=== PATIENT | male | born 1945 | race Caucasian/White ===

== ENCOUNTER 2023-11-25 07:30 | Outpatient (AMB) | payer OTHER, SELFPAY ==
--- NOTE | 2023-11-25 07:39 | A.OFFPC_ITS ---
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 Intake Note: [facility] Allergies Seasonal Allergies Adverse Reaction (Verified 11/25/23 07:46) Sneezing statin Adverse Reaction (Uncoded 11/25/23 07:46) joint pain Medication List - Last Reconciled 11/25/23 by Rosio Shore MD amoxicillin 2,000 mg (4 x 500 mg) PO ONCE apixaban (Eliquis) 2.5 mg PO BID dutasteride 0.5 mg PO DAILY losartan 50 mg PO DAILY Tobacco use date assessed: 11/25/23 Fall risk assessment: No Falls in past year Last assessed Fall Risk: 11/25/23 Dental Screening Dental Screen Date: 11/25/23 Did you have a dental visit in the last 12 months?: Yes Did you have a dental problem in the last 6 months where you did not have access to dental care?: No Was dental information given to patient?: Patient has dentist HPI 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 ON LICENSE OF [facility] Family History Father Stomach cancer Mother No problems noted. Social History (Updated 11/25/23 @ 08:16 by Rosio Shore MD) Household Members Other:: , 2 children Housing: House Patient Tobacco Use Status: Never used Tobacco e-Cigarette/Vaping Use: Never Used service: No Current occupational status: retired Cognitive needs: No Hearing needs: No Vision needs: Yes Questionnaire PHQ-9 Over the last 2 weeks, how often have you been bothered by any of the following problems? 1. Little interest or pleasure in doing things: not at all 2. Feeling down, depressed, or hopeless: not at all 3. Trouble falling or staying asleep, or sleeping too much: not at all 4. Feeling tired or having little energy: not at all 5. Poor appetite or overeating: not at all 6. Feeling bad about yourself - or that you are a failure or have let yourself or your family down: not at all 7. Trouble concentrating on things, such as reading the newspaper or watching television: not at all 8. Moving or speaking so slowly that other people could have noticed. Or the opposite - being so fidgety or restless that you have been moving around a lot more than usual: not at all 9. Thoughts that you would be better off or of hurting yourself in some way: not at all Total score: 0 Depression Screening Interpretation: Negative Depression Screening Done: Yes 28288 - PHQ-9 Billing: Yes Source: Developed by Drs. Bo Gee, Claire Merritt, Yamil Terry and colleagues, with an educational tim from [employer]. Thrive Questionnaire Date Thrive assessed: 11/25/23 I am a: Patient What is your living situation today?: I have a steady place to live Within the past 12 months, did the food you bought not last and you didn't have the money to get more?: Never true Within the past 12 months, did you worry whether your food would run out before you got money to buy more?: Never true Do you have trouble paying for medicines?: No Do you have trouble getting transportation to medical appointments?: No Do you have trouble paying your heating and electricity bill?: No Do you have trouble taking care of your child, family member or friend?: No Do you have trouble with day-to-day activities such as bathing, preparing meals, shopping, managing finances, etc.?: No Are you currently unemployed and looking for a job?: No Are you interested in more education?: No THRIVE Score: 0 AUDIT C Alcohol Use Questionnaire (AUDIT-C) 1. How often do you have a drink containing alcohol?: Monthly or less 2. How many drinks containing alcohol do you have on a typical day when you are drinking?: 1 or 2 3. How often do you have six or more drinks on one occasion?: Never Total Score: 1 JAMIL-7 AMB Questionnaire JAMIL-7 Date JAMIL - 7 assessed: 11/25/23 Feeling nervous, anxious, or on edge: 0 = Not at all Not being able to stop or control worryin = Not at all Worrying too much about different things: 0 = Not at all Trouble relaxin = Not at all Being so restless that it is hard to sit still: 0 = Not at all Becoming easily annoyed or irritable: 0 = Not at all Feeling afraid as if something awful might happen: 0 = Not at all Total JAMIL-7 score (0-4 normal; 5-9 mild; 10-14 moderate; 15-21 severe): 0 Source: Developed by Drs. Bo Gee, Claire Merritt, Yamil Terry and colleagues, with an educational tim from [employer]. Review of Systems Const All systems reviewed & are unremarkable except as noted in HPI and below Reports no additional complaints Eyes Reports no additional complaints ENT Reports no additional complaints Card Reports no additional complaints Resp Reports no additional complaints GI Reports no additional complaints Reports no additional complaints Physical exam (Primary Care) Vital Signs: Last Vital Signs Pulse 69 11/25/23 07:44 BP 138/70 11/25/23 07:44 Pulse Ox 96 11/25/23 07:44 Oxygen Delivery Method Room Air 11/25/23 07:44 BMI result Body Mass Index 27.0 Tobacco/Smoking Status: Tobacco use Status Tobacco use date assessed 11/25/23 11/25/23 07:50 Patient Tobacco Use Status Never used Tobacco 11/25/23 08:16 e-Cigarette/Vaping Use Never Used 11/25/23 08:16 PHQ-9: PHQ-9 Score PHQ-9: Total score 0 11/25/23 08:10 Depression Screening Interpretation: Negative Thrive Assessment: Date of Thrive Assessment Date Thrive assessed 11/25/23 11/25/23 07:53 Const General: no acute distress HENMT Head: Yes normal to inspection General nose exam: Normal external nose present Mouth: Normal oral and palatal mucosa present Eyes General: appearance normal, both eyes and all related structures Neck Neck: Yes no lymphadenopathy and Yes supple Resp Effort & Inspection: normal respiratory effort Auscultation: clear to auscultation bilaterally Cardio Rhythm: regular rhythm Heart sounds: S1 normal heart sound present and S2 normal heart sound present GI Inspection: Yes normal to inspection Palpation (GI): Soft to palpation Percussion: Yes normal to percussion Auscultation: normal bowel sounds Skin Other: Multiple irregular borders flat nevi on the back Assessment and Plan Assessment & Plan (1) BPH (benign prostatic hyperplasia): Comment: f/u with [facility] Code(s): N40.0 - Benign prostatic hyperplasia without lower urinary tract symptoms Plan: CONTINUE DUTASTERIDE (2) Hx pulmonary embolism: Comment: 2009 , on Eliquis Code(s): Z86.711 - Personal history of pulmonary embolism Plan: Continue Eliquis (3) HTN (hypertension): Code(s): I10 - Essential (primary) hypertension Plan: Continue losartan (4) H/O hernia repair: Code(s): Z98.890 - Other specified postprocedural states; Z87.19 - Personal history of other diseases of the digestive system (5) Annual physical exam: Code(s): Z00.00 - Encounter for general adult medical examination without abnormal findings Plan: Well-balanced diet regular physical activity discussed with the patient, return for physical in 1 year (6) Dysplastic nevi: Code(s): D23.9 - Other benign neoplasm of skin, unspecified Plan: Referred to dermatology Orders: Orders Complete Blood Count Auto Diff Today I10 - Essential (primary) hypertension, N40.0 - Benign prostatic hyperplasia without lower urinary tract symptoms Lipid Panel Today I10 - Essential (primary) hypertension, N40.0 - Benign prostatic hyperplasia without lower urinary tract symptoms Complete Blood Count Auto Diff 1 Year I10 - Essential (primary) hypertension, Z86.711 - Personal history of pulmonary embolism [facility]. Panel Fast Today I10 - Essential (primary) hypertension, N40.0 - Benign prostatic hyperplasia without lower urinary tract symptoms [facility]. Panel Fast 1 Year I10 - Essential (primary) hypertension, Z86.711 - Personal history of pulmonary embolism Referrals Dermatology Referral D23.9 - Other benign neoplasm of skin, unspecified Medications: New losartan 50 mg PO DAILY 90 tabs 3RF amoxicillin before dental procedure 2,000 mg (4 x 500 mg) PO ONCE 8 tabs 1RF apixaban (Eliquis) 2.5 mg PO BID 180 tabs 3RF Coding Level of Care Code New Pt Prev Care >65yr (32655) Diagnoses BPH (benign prostatic hyperplasia) N40.0 Hx pulmonary embolism Z86.711 HTN (hypertension) I10 H/O hernia repair Z98.890; Z87.19 Annual physical exam Z00.00 Dysplastic nevi D23.9
[2023-11-25 07:44] VITALS: BP 138/70; PULSE 69; O2SAT 96; BMI 27.0
== END 2023-11-25 08:37 | disposition home or self-care (01) ==
PROVIDERS: PCP Internal Medicine; Visit Provider Internal Medicine
DX: N40.0 Benign prostatic hyperplasia without lower urinary tract symptoms (principal); Z86.711 Personal history of pulmonary embolism; I10 Essential (primary) hypertension; Z98.890 Other specified postprocedural states; Z87.19 Personal history of other diseases of the digestive system; Z00.00 Encounter for general adult medical examination without abnormal findings; D23.9 Other benign neoplasm of skin, unspecified
CPT/HCPCS: 99387

== ENCOUNTER 2023-11-25 08:44 | Outpatient (REF) | payer OTHER, SELFPAY ==
[2023-11-25 10:24] LABS: MANUAL DIFF FLAG NO
[2023-11-25 10:42] LABS: Basophils Percent Auto 0.5 % (0-2); Eosinophils Absolute Auto 0.1 X10*3/uL (0.0-0.4); Eosinophils Percent Auto 1.5 % (0-4); Hemoglobin 16.8 g/dl (14.0-18.0); Imm Gran Abs Auto 0.03 X10*3/uL (0.00-0.03); Imm Gran Pct Auto 0.4 % (0.0-0.4); Lymphocytes Absolute Auto 3.1 X10*3/uL (1.2-4.9); Lymphocytes Percent Auto 40.8 % (20-40); Mean Corpuscular HGB Conc 33.6 g/dl (31.0-36.0); Mean Corpuscular Hemoglobin 30.6 pg (27.0-33.0); Mean Corpuscular Volume 91.1 fL (80.0-98.0); Mean Platelet Volume 8.8 fL (9.4-12.4); Monocytes Absolute Auto 0.7 X10*3/uL (0.1-1.2); Monocytes Percent Auto 9.4 % (2-11); Neutrophils Absolute Auto 3.6 x10*3/uL (2.0-8.3); Neutrophils Percent Auto 47.4 % (45-73); Platelet Count 409 X10*3/uL (160-400); Red Blood Count 5.49 X10*6/uL (4.60-5.80); Red Cell Distribution Width 13.1 % (11.0-16.0); White Blood Count 7.6 X10*3/uL (4.8-10.8)
[2023-11-25 10:59] LABS: Alanine Aminotransferase 17 U/L (0-40); Albumin Level 4.3 g/dL (3.5-5.0); Alkaline Phosphatase 84 U/L (39-117); Anion Gap 13 (12-20); Aspartate Amino Transferase 17 U/L (5-37); Bilirubin Total 0.7 mg/dL (0.0-1.0); Blood Urea Nitrogen 21 mg/dL (9-16); Calcium 9.3 mg/dL (8.4-10.2); Carbon Dioxide 24 mmol/L (22-29); Chloride 108 mmol/L (96-108); Cholesterol 261 mg/dL (<200); Estimated Glomerular Filt Rate > 60; Glucose Fasting 109 mg/dL (60-99); HDL Cholesterol 38 mg/dL (>40); LDL Cholesterol Calculated 192 mg/dL (<100); Potassium 4.3 mmol/L (3.3-5.1); Sodium 141 mmol/L (135-145); Total Protein 7.5 g/dL (6.5-8.0); Triglycerides 158 mg/dL (<150)
== END 2023-11-25 08:45 | disposition home or self-care (01) ==
LOC: HO.HMGCLDS 08:44
PROVIDERS: PCP Internal Medicine; Visit Provider Internal Medicine
DX: I10 Essential (primary) hypertension (principal); N40.0 Benign prostatic hyperplasia without lower urinary tract symptoms
CPT/HCPCS: 36415; 80053; 80061; 85025

== ENCOUNTER 2024-08-09 13:00 | Outpatient (AMB) | payer OTHER, SELFPAY ==
--- NOTE | 2024-08-09 13:22 | AM.OFFWIN_ITS ---
Intake Vital Signs 08/09/24 13:27 Weight 168 lb BP 122/80 Blood Pressure Location Lt brachial Position Sitting Pulse 60 Pulse Source Pulse Oximeter Pulse Oximetry (%) 98 Oxygen Delivery Method Room Air Intake Visit Reasons: EP needs Aditi removed from the back of the head Intake Note: Patient here to have aditi removed from back of head. placed at [facility] and has 5 aditi. Patient Tobacco Use Status: Never used Tobacco Allergies Seasonal Allergies Adverse Reaction (Verified 08/09/24 13:28) Sneezing statin Adverse Reaction (Uncoded 08/09/24 13:28) joint pain Do you need a note to return to daycare/school/sports/work: No HPI HPI Comments History of Present Illness Details History of Present Illness - The patient is an 78-year-old male pre senting with staple removal from the scalp. - Previously, one week ago, the patient experienced symptoms of influenza, including nausea, vomiting, dizziness, and diarrhea. - The patient fainted as a result, susta ining a laceration to the scalp which required five aditi for closure. - Post-treatment, there has been no repo rted pain or complications at the staple site, and he has maintained cleanliness around the area. - The aditi were placed without furthe r issues, and no discharge or infection was noted. Physical Exam General: Cooperative, healthy appearing, comfortable, no acute distress and well developed Orientation: Patient oriented x3 Limitations: No limitations Head: [place] removed from scalp, healed well with scab present Ears: Hearing grossly normal bilaterally Nose: Normal external nose present Face and sinus: Normal facial exam Eyes: Appearance normal, both eyes and all related structures Neck: Normal visual inspection and Yes full ROM Respiratory: Normal respiratory effort and able to speak in complete sentences. Skin: No rashes or lesions noted Neuro: Patient oriented x3 Extremities: Normal to inspection [facility] Family History (Updated 11/25/23 @ 08:24 by Rosio Shore MD) Father Stomach cancer Mother No problems noted. Social History (Updated 11/25/23 @ 08:16 by Rosio Shore MD) Household Members Other:: , 2 children Housing: House Patient Tobacco Use Status: Never used Tobacco e-Cigarette/Vaping Use: Never Used service: No Current occupational status: retired Cognitive needs: No Hearing needs: No Vision needs: Yes Review of Systems Const All systems reviewed & are unremarkable except as noted in HPI and below Physical Exam Vital Signs: Last Vital Signs Pulse 60 08/09/24 13:27 BP 122/80 08/09/24 13:27 Pulse Ox 98 08/09/24 13:27 Oxygen Delivery Method Room Air 08/09/24 13:27 Assessment & Plan Assessment & Plan (1) Encounter for staple removal: Code(s): Z48.02 - Encounter for removal of sutures Plan: Plan The course of action for today's visit was the removal of five aditi from the patient's scalp, which was uneventful and completed successfully. The area was found to be healing well, with no signs of infection or drainage. The patient was instructed on gentle washing of hair to ensure continued healing without disrupting the area. No further wound care was deemed necessary at this time. Patient was informed and verbally consented to the use of an ambient scribe for clinic note documentation during this visit. Coding Level of Care Code Est Pt Level 3 (23530) Diagnoses Encounter for staple removal Z48.02
[2024-08-09 13:27] VITALS: BP 122/80; PULSE 60; O2SAT 98
--- OUTSIDE RECORDS SUMMARY | 2024-08-09 13:53 | XMS_ITS | Clinical Summary ---
Author Organization [address] [facility] Address [address] [place] [address] Phone Care Team Providers Care Senior Payroll Specialist Name Role Phone Rosio Shore MD Primary Care Provider Encounters Date Type Department Care Team Description 07/24/2024 Lab Requisition [facility] - Main Lab [address] [facility] [place] [address] Rayray Radford MD Benign prostatic hyperplasia without lower urinary tract symptoms from Last 3 Months Social History Tobacco Use Types Packs/Day Years Used Date Smoking Tobacco: Never Assessed Sex and Gender Information Value Date Recorded Sex Assigned at Not on file Legal Sex Male 4:05 PM EST Gender Identity Not on file Sexual Orientation Not on file Plan of Treatment Health Maintenance Due Date Last Done Comments DTaP,Tdap,and Td Vaccines (1 - Tdap) 08/26/1962 Pneumococcal Vaccine: 50+ Ye ars (1 of 1 - PCV) 08/26/1993 Zoster Vaccines (1 of 2) 08/26/1993 RSV Immunization Patients 60 + Years Old (1 - 1-dose 75+ series) 08/26/2018 Cholesterol Screening (Lipid Panel) 05/19/2022 Depression Screening 05/19/2022 Falls Risk Assessment 05/19/2022 Medicare Annual Wellness Visit 05/19/2022 Social Influencers of Health Screening 05/19/2022 COVID-19 Vaccine ( - 2023-2 5 season) 2024 Influenza Vaccine (#1) 2024 HIB Vaccines Aged Out No longer eligi ble based on patient's age to complete this topic HPV Vaccines Aged Out No longer eligi ble based on patient's age to complete this topic Hepatitis A Vaccines Aged Out No long er eligible based on patient's age to complete this topic Hepatitis B Vaccines Aged Out No long er eligible based on patient's age to complete this topic IPV Vaccines Aged Out No longer eligi ble based on patient's age to complete this topic MMR Vaccines Aged Out No longer eligi ble based on patient's age to complete this topic Meningococcal ACWY Vaccine Aged Out N o longer eligible based on patient's age to complete this topic Meningococcal B Vacine Aged Out No lo nger eligible based on patient's age to complete this topic RSV Immunization Patients Un padmini 20 months Aged Out No longer eligible b ased on patient's age to complete this topic Varicella Vaccines Aged Out No longer eligible based on patient's age to complete this topic Procedures Procedure Name Priority Date/Time Associated Diagnosis Comments PROSTATE SPECIFIC ANTIGEN DIAGNOSTIC Routine 07/24/2024 9:46 AM EST Benign prostatic hyperplasia without lower urinary tract symptoms from Last 3 Months Results * Prostate specific antigen diagnostic (07/24/2024 9:46 AM EST) PSA 0.82 0.00 - 4.00 ng/mL LAB CHEMISTRY METHOD 07/24/2024 1:31 PM EST [facility] Blood Venous blood specimen / Unknown 07/24/2024 9:46 AM EST 07/24/2024 12:38 PM EST Narrative [facility] - 07/24/2024 1:31 PM EST The Siemens Advia Centaur Chemiluminescent Immunoassay is used. Results obtained with different assay methods or kits cannot be used interchangeably. Results cannot be interpreted as absolute evidence of the presence or absence of malignant disease. us Rayray Radford MD LAB BLOOD ORDERABLES Final Resul t [facility] [address] [place] [address], from Last 3 Months Insurance [employer] [id number] [employer]AGE Care Teams Senior Payroll Specialist Relationship Specialty Start Date End Date Rosio Shore MD [address] [place] [phone] PCP - General Internal Medicine 07/24/24
--- OUTSIDE RECORDS SUMMARY | 2024-08-09 13:53 | XMS_ITS | Encounter Summary ---
Author Organization [facility] Address [address] [place] [address] Care Team Providers Care Tube Wrapper Name Role Phone Rosio Shore MD Primary Care Provider [phone] Encounter Details Date Type Department Care Team (Late st Contact Info) Description 07/24/2024 Lab Requisition [facility] - Main Lab [address] [facility] [place] [address] Rayray Radford MD [address] [facility] [address] [place] [address] Benign prostatic hyperplasia without lower urinary tract symptoms Social History Tobacco Use Types Packs/Day Years Used Date Smoking Tobacco: Never Assessed Sex and Gender Information Value Date Recorded Sex Assigned at Not on file Legal Sex Male 4:05 PM EST Gender Identity Not on file Sexual Orientation Not on file documented as of this encounter Plan of Treatment Not on file documented as of this encounter Procedures Procedure Name Priority Date/Time Associated Diagnosis Comments PROSTATE SPECIFIC ANTIGEN DIAGNOSTIC Routine 07/24/2024 9:46 AM EST Benign prostatic hyperplasia without lower urinary tract symptoms documented in this encounter Results * Prostate specific antigen diagnostic (07/24/2024 9:46 AM EST) PSA 0.82 0.00 - 4.00 ng/mL LAB CHEMISTRY METHOD 07/24/2024 1:31 PM EST [facility] Blood Venous blood specimen / Unknown 07/24/2024 9:46 AM EST 07/24/2024 12:38 PM EST Narrative [facility] - 07/24/2024 1:31 PM EST The Siemens Advia Centaur Chemiluminescent Immunoassay is used. Results obtained with different assay methods or kits cannot be used interchangeably. Results cannot be interpreted as absolute evidence of the presence or absence of malignant disease. Rayray Radford MD LAB BLOOD ORDERABLES Final Resul t [facility] [address] [place] [address], documented in this encounter Visit Diagnoses Diagnosis Benign prostatic hyperplasia without lower urinary tract symptoms documented in this encounter Care Teams Tube Wrapper Relationship Specialty Start Date End Date Rosio Shore MD [address] [place] [phone] PCP - General Internal Medicine 07/24/24 documented as of this encounter
--- OUTSIDE RECORDS SUMMARY | 2024-08-09 13:53 | XMS_ITS | Continuity of Care Document ---
Author Organization [facility] ter Address [address] [place] [id number]- Care Team Providers Care Binding Folder Machine Name Role Phone Yuliya Conroy Primary Care Physician Unava ilable Encounter [facility] ACCT R [id number] Date(s): 08/02/24 - 08/02/[address] [address]- Encounter Diagnosis Vomiting(Final) - 08/02/24 Diarrhea(Final) - 08/02/24 Syncope(Final) - 08/02/24 Laceration of head(Final) - 08/02/24 Discharge Disposition: A-D/C Home Attending Physician: Andres Dunlap MD Admitting Physician: Andres Dunlap MD Referring Physician: Not on Staff, Referring MD Encounter Type: Disch ES Allergies, Adverse Reactions, Alerts Substance Criticality Severity Reaction Reaction Severity Status simvastatin 1 Active atorvastatin 2 Activ e 1myalgia 2myalgia Medications cholecalciferol 2000 intl units oral capsule 1 capsule = 2,000 International_Units, By Mouth, Daily, 0 Refills, Maintenance, 02/16/19 10:33:25 AMEDT, Capsule Start Date: 02/16/19 Status: Ordered Repeat number: 1 Colace sodium 100 mg oral capsule 100 mg, 1, capsule, By Mouth, 2 times a day, PRN, # 20 capsule, Refills 0, Tot. Refills 0, Maintenance, for constipation, 02/27/19 3:19:12 PM EDT, Print Requisition Start Date: 02/27/19 Stop Date: 03/09/19 Status: Ordered Quantity: 20.0 Unit: capsule Repeat number: 1 Coumadin 1 mg oral tablet See Instructions, 1-10 tablets By Mouth Daily as directed, # 150 tablet, 0 Refills, Maintenance, 07/21/19 8:16:00 AM EST, Tablet Start Date: 07/21/19 Status: Ordered Quantity: 150.0 Unit: tablet Repeat number: 1 Dilaudid 2 mg oral tablet 1 tablet = 2 mg, By Mouth, Every 4 hours, PRN as needed for pain, # 30 tablet, 0 Refills, Maintenance, 07/21/19 8:16:00 AM EST, Tablet, Partial fill upon patient request Start Date: 07/21/19 Status: Ordered Quantity: 30.0 Unit: tablet Repeat number: 1 dutasteride 0.5 mg oral capsule 1 capsule = 0.5 mg, By Mouth, Daily, # 30 capsule, 0 Refills, Maintenance, 02/16/19 10:33:09 AM EDT,Capsule Start Date: 02/16/19 Status: Ordered Quantity: 30.0 Unit: capsule Repeat number: 1 losartan 50 mg oral tablet 50 mg, 1, tablet, By Mouth, Daily, Only if BP is 130 pt might go back to this med., # 30 tablet, Refills 0, Maintenance, 02/16/19 10:32:44 AM EDT Start Date: 02/16/19 Status: Ordered Quantity: 30.0 Unit: tablet Repeat number: 1 Lovenox 40 mg/0.4 mL injectable solution = 40 mg, Subcutaneous Injection, Daily, take until INR>1.8, # 7 each, 0 Refills, Maintenance, 07/21/19 8:15:00 AM EST Start Date: 07/21/19 Status: Ordered Quantity: 7.0 Unit: each Repeat number: 1 ondansetron 4 mg oral tablet, disintegrating 1 tablet = 4 mg, By Mouth, Every 8 hours, PRN Nausea & Vomiting, # 10 tablet, 0 Refills, Maintenance, 08/02/24 7:20:00 PM EST, Tablet, [id number], Partial fill upon patient request if the prescription is for a schedule II opioid drug. Start Date: 08/02/24 Status: Ordered Quantity: 10.0 Unit: tablet Repeat number: 1 Problem List Condition Confirmation Course Effective Dates Status H ealth Status Informant History of pulmonary embolism (2017) - evaluated by hematology, negative thrombophilia testing, still recommended life long anticoagulation Confirmed Active Hypertension Confirmed Active Left inguinal hernia Confirmed Active Results Radiology Reports * Exam Date Time Procedure Performing Provider Status 08/02/24 7:[address] Cervical Spine W/O Contrast Jackie Cruz; Auth (Verified) Notes: (CT Cervical Spine W/O Contrast) Reason For Exam: Neck trauma, dangerous injury mechanism;Other: RESULT: CT Cervical Spine W/O Contrast CT Head/Brain W/O Contrast, CT Cervical Spine W/O Contrast INDICATION: Hx of Present Illness: Pt presents after unwitnessed fall off toilet, ?syncopal episode. +head strike, +LOC, +thinner. lac to back of head, bleeding controlled. pt also c o [facility]. pt reports diarrhea x1 day at home.; Reason: Trauma; Clinical Question(s): Hematoma TECHNIQUE: Noncontrast head CT using axial technique was reconstructed in axial and coronal planes.Noncontrast spiral CT through the cervical spine was formatted in 3 planes. Automatic tube modulation was used for the cervical spine and iterative dose reconstruction was used for both the head and cervical spine to optimize scan parameters and image quality. CTDIvol Body: 13.20 mGy, DLP Body: 342 mGy*cm. CTDIvol Head: 39.70 mGy, DLP Head: 672 mGy*cm. COMPARISON: None. FINDINGS: Copper Tapper View Findings, Lines and Tubes: None. BRAIN AND EXTRA-AXIAL SPACES: No parenchymal hemorrhage, midline shift, or mass effect. Waller-white matter differentiation is wellpreserved. No acute infarct. Mild prominence of the ventricles and sulci consistent with parenchymal volume loss. Mild low-density white matter changes. No subarachnoid hemorrhage. No subdural or epidural collection. CALVARIUM, SKULL BASE, AND SOFT TISSUES: No fractures or suspicious bony lesions. The paranasal sinuses and mastoid air cells are clear. Visualized orbits and globes are intact. The extracranial soft tissues are unremarkable. CERVICAL SPINE: No fracture. No acute osseous abnormalities. Normal alignment. No locked or perched facet. Moderate multilevel degenerative disc space narrowingand end plate irregularity. OTHER BONES: No acute abnormality. CERVICAL SOFT TISSUES AND LUNG APICES: Normal soft tissues. Visualized lung apices are clear. IMPRESSION: 1. No evidence of acute intracranial abnormality. 2. No evidence of acute fracture or dislocation of the cervical spine. WSN: [id number] Ordering Physician: Talia Zeng Dictated By: Rickey Naranjo MD Dictated Date/Time: 08/02/24 8:02 am Reviewed By: Rickey Naranjo MD Signed By: Rickey aNranjo MD Signed Date/Time: 08/02/24 8:02 am Transcribed By: RICA Transcribed Date/Time: 08/02/24 8:00 am * Exam Date Time Procedure Performing Provider Status 08/02/24 7:[address] Head/Brain W/O Contrast Jackie Rodriguez; Auth (Verified) Notes: (CT Head/Brain W/O Contrast) Reason For Exam: Trauma RESULT: CT Head/Brain W/O Contrast CT Head/Brain W/O Contrast, CT Cervical Spine W/O Contrast INDICATION: Hx of Present Illness: Pt presents after unwitnessed fall off toilet, ?syncopal episode. +head strike, +LOC, +thinner. lac to back of head, bleeding controlled. pt also c o [facility]. pt reports diarrhea x1 day at home.; Reason: Trauma; Clinical Question(s): Hematoma TECHNIQUE: Noncontrast head CT using axial technique was reconstructed in axial and coronal planes.Noncontrast spiral CT through the cervical spine was formatted in 3 planes. Automatic tube modulation was used for the cervical spine and iterative dose reconstruction was used for both the head and cervical spine to optimize scan parameters and image quality. CTDIvol Body: 13.20 mGy, DLP Body: 342 mGy*cm. CTDIvol Head: 39.70 mGy, DLP Head: 672 mGy*cm. COMPARISON: None. FINDINGS: Copper Tapper View Findings, Lines and Tubes: None. BRAIN AND EXTRA-AXIAL SPACES: No parenchymal hemorrhage, midline shift, or mass effect. Waller-white matter differentiation is wellpreserved. No acute infarct. Mild prominence of the ventricles and sulci consistent with parenchymal volume loss. Mild low-density white matter changes. No subarachnoid hemorrhage. No subdural or epidural collection. CALVARIUM, SKULL BASE, AND SOFT TISSUES: No fractures or suspicious bony lesions. The paranasal sinuses and mastoid air cells are clear. Visualized orbits and globes are intact. The extracranial soft tissues are unremarkable. CERVICAL SPINE: No fracture. No acute osseous abnormalities. Normal alignment. No locked or perched facet. Moderate multilevel degenerative disc space narrowingand end plate irregularity. OTHER BONES: No acute abnormality. CERVICAL SOFT TISSUES AND LUNG APICES: Normal soft tissues. Visualized lung apices are clear. IMPRESSION: 1. No evidence of acute intracranial abnormality. 2. No evidence of acute fracture or dislocation of the cervical spine. WSN: [id number] Ordering Physician: Talia Zeng Dictated By: Rickey Naranjo MD Dictated Date/Time: 08/02/24 8:02 am Reviewed By: Rickey Naranjo MD Signed By: Rickey Naranjo MD Signed Date/Time: 08/02/24 8:02 am Transcribed By: RICA Transcribed Date/Time: 08/02/24 8:00 am Vital Signs Most recent to oldest [Reference Range]: 1 2 3 Oxygen Saturation [94-100 %] 98 % (08/02/24 7:04 PM) 95 % (08/02/24 11:40 AM) 97 % (08/02/24 7:58 AM) Pulse Rate [55-90 bpm] 104 bpm *H* (08/02/24 7:04 PM) 73 bpm (08/02/24 11:40 AM) 69 bpm (08/02/24 7:58 AM) Blood Pressure [90-138/55-84 mm Hg] 130/82mm Hg (08/02/24 7:04 PM) 138/70mm Hg (08/02/24 11:40 AM) 125/58mm Hg (08/02/24 7:58 AM) Respiratory Rate [16-30 br/min] 16 br/min (08/02/24 7:04 PM) 18 br/min (08/02/24 7:58 AM) 18 br/min (08/02/24 7:03 AM) Temperature [96.8-100.4 DegF] 97.7 DegF (08/02/24 7:04 PM) 97.5 DegF (08/02/24 7:58 AM) 97.5 DegF (08/02/24 7:03 AM) Mode of Delivery (Oxygen) Room air (08/02/24 7:04 PM) Room air (08/02/24 7:58 AM) Room air (08/02/24 7:03 AM) Blood pressure sites Arm, right (08/02/24 7:04 PM) Arm, right (08/02/24 7:58 AM) Arm, left (08/02/24 7:03 AM) Temperature Route Oral (08/02/24 7:04 PM) Oral (08/02/24 7:58 AM) Oral (08/02/24 7:03 AM) Social History Social History Type Response Smoking Status Never smoker entered on: 09/20/17 Sex Sex Representation Male (finding) Implantable Device List Procedure Provider Procedure Date Device Type Site Repair Hernia Inguinal with Mesh Cricket Gallo MD 02/27/19 Unknown Groin Left Device Identifier Serial Number Lot or Batch Number Manufacturing Date Expiration Date Distinct Identification Code MRI Safety Implantable Status Assigning Authority Unknown [id number] Unknown 06/16/23 Unknown Unknown Active Unknown EKG study * Event Display: ECG 12-Lead Authored Date: [id number] Please click on pdf link to open report * Event Display: ECG 12-Lead Authored Date: [id number] Ventricular Rate: 58 BPM Atrial Rate: 58 BPM P-R Interval: 162 ms QRS Duration: 132 ms Q-T Interval: 476 ms QTC Calculation(Bazett): 467 ms P Wolf: 13 degrees R Wolf: -53 degrees T Wolf: 10 degrees Sinus bradycardia Right bundle branch block Left anterior fascicular block Bifascicular block Minimal voltage criteria for LVH, may be normal variant ( R in aVL ) Abnormal ECG When compared with ECG of 22-Jul-2019 09:00, Inverted T waves have replaced nonspecific T wave abnormality in Anterior leads Confirmed by KIEL GAMBLE MD ([id number]) on 08/03/2024 8:19:45 AM [place]: KIEL GAMBLE MD Note * Azucena FLAHERTY, Talia: PERFORM Event Display: Patient Education Leaflets Authored Date: [id number] Scalp Laceration, Stitches or [place] ?? [id number] Scalp Laceration, Stitches or Atul A laceration is a cut through the skin. A scalp laceration may require stitches or atul. It may also be closed with a hair positioning method, such as braiding. There are a lot of blood vessels inthe scalp. Because of this, a lot of bleeding is common with scalp cuts. You may need a tetanus shot if you're not up to date on your tetanus vaccine. Home care These guidelines will help you care for your laceration at home: ??? Follow your healthcare provider's specific directions on washing your hair and scalp. During the first 2 days you may carefully rinse your hair in the shower to remove blood and glass or dirt particles, or as advised by your provider. After 2 days you may shower and shampoo your hair normally. Don't scrub the repaired area or let water run on it for a long time. ??? Have someone help you clean your wound every day: o In the shower, wash the area with soap and water. Use a wet cotton swab to loosen and remove any blood or crust that forms. o After cleaning, keep the wound clean and dry. Talk with your healthcare provider about applying antibiotic ointment to the wound. Apply a fresh bandage. ??? Don't put your head underwater until the stitches or atul have been removed. This means no swimming. ??? Your provider may prescribe an antibiotic cream or ointment to prevent infection. Don't stop taking this medicine until you've finished the medicine that was prescribed, or your provider tells you to stop. ??? Your prov ider may prescribe medicines for pain. If no pain medicines were prescribed, you can use [id number] pain medicines. Follow instructions for taking these medicines. Talk with your provider before using these medicines if you have chronic liver or kidney disease. Also talk with your provider ifyou've ever had a stomach ulcer or digestive tract bleeding. ??? To help prevent scarring, put sunscreen on the wound after it has healed. Use a sunscreen with SPF of 30 or higher. Reapply sunscreen often. ?? Follow-up care Follow up with your healthcare provider as advised. Check the wound daily for the signs of infection listed below. Stitches or atul are often removed from the scalp in about 7 to 10 days. ?? Call 911 Call 911 if this occurs: ??? Bleeding can't be controlled by direct pressure ?? When to get medical advice Call your healthcare provider right away if any of the following occur: ??? Signs of infection, including increasing pain in the wound, redness, swelling, or pus coming from the wound ??? Fever of 100.4??F (38??C) or higher, or as advised by your provider ??? Chills ??? Stitches or atul come apart or fall out before 7 days ??? Wound edges reopen ?? Last Reviewed Date: 2021 ?? [id number] [employer]. All rights reserved. This information is not intended as a substitute for professional medical care. Always follow your healthcare professional's instructions. ?? Patient Care team information Care Team Personnel Name: Rocio Cuevas RN Position: S RN Member Role: Primary Care Nurse Name: Yuliya Conroy Position: Reference Physician Member Role: PCP Name: Mikala Canas RN Position: S RN Member Role: Primary Care Nurse Name: Braydon Macias RN Position: S RN Member Role: Primary Care Nurse Name: Riya Linares RN Position: S RN Member Role: Primary Care Nurse Care Team Related Persons Name: JANESSA PAREDES Name: DONOVAN PAREDES Insurance Providers Guarantor name: JASKARAN PAREDES Health Plan Information #: 1 Payer: [facility] [employer] H[facility] Member Number: [id number] Policy Number: NA Group Number: [id number] Health Plan Information #: 2 Payer: [facility] [employer] H[facility] Member Number: [id number] Policy Number: NA Group Number: [id number]
== END 2024-08-09 13:44 | disposition home or self-care (01) ==
PROVIDERS: PCP Internal Medicine; Visit Provider Physician Assistant
DX: Z48.02 Encounter for removal of sutures (principal)

== ENCOUNTER 2024-08-15 11:50 | Outpatient (AMB) | payer OTHER, SELFPAY ==
--- NOTE | 2024-08-15 12:40 | A.OFFPC_ITS ---
Vital Signs 08/15/24 12:41 Height 5 ft 6 in Weight 169 lb BMI 27.3 BP 130/80 Blood Pressure Location Lt brachial Position Sitting Respiration 18 Pulse 81 Pulse Source Pulse Oximeter Temp 97.7 F Temp Source Oral Pulse Oximetry (%) 97 Oxygen Delivery Method Room Air Intake Visit Reasons: Pre op cataract Intake Note: Pt is here today for a pre op visit. Pt is having cataract surgery on Allergies Seasonal Allergies Adverse Reaction (Verified 08/15/24 13:00) Sneezing statin Adverse Reaction (Uncoded 08/15/24 13:00) joint pain Medication List - Last Reconciled 08/15/24 by Rosio Shore MD apixaban (Eliquis) 2.5 mg PO BID dutasteride 0.5 mg PO DAILY losartan 50 mg PO DAILY Tobacco use date assessed: 08/15/24 Fall risk assessment: 1 Fall in past year Last assessed Fall Risk: 08/15/24 Dental Screening Dental Screen Date: 08/15/24 Did you have a dental visit in the last 12 months?: Yes Did you have a dental problem in the last 6 months where you did not have access to dental care?: No Was dental information given to patient?: Patient has dentist HPI Pre op cataract HPI Details Pt presents for preop cataract surgery for R eye. Hypertension is controlled on losartan. [facility] Family History (Updated 11/25/23 @ 08:24 by Rosio Shore MD) Father Stomach cancer Mother No problems noted. Social History (Updated 11/25/23 @ 08:16 by Rosio Shore MD) Household Members Other:: , 2 children Housing: House Patient Tobacco Use Status: Never used Tobacco e-Cigarette/Vaping Use: Never Used service: No Current occupational status: retired Cognitive needs: No Hearing needs: No Vision needs: Yes Questionnaire PHQ-9 Over the last 2 weeks, how often have you been bothered by any of the following problems? 1. Little interest or pleasure in doing things: not at all 2. Feeling down, depressed, or hopeless: not at all 3. Trouble falling or staying asleep, or sleeping too much: not at all 4. Feeling tired or having little energy: not at all 5. Poor appetite or overeating: not at all 6. Feeling bad about yourself - or that you are a failure or have let yourself or your family down: not at all 7. Trouble concentrating on things, such as reading the newspaper or watching television: not at all 8. Moving or speaking so slowly that other people could have noticed. Or the opposite - being so fidgety or restless that you have been moving around a lot more than usual: not at all 9. Thoughts that you would be better off or of hurting yourself in some way: not at all Total score: 0 Depression Screening Interpretation: Negative Depression Screening Done: Yes 10376 - PHQ-9 Billing: Yes Source: Developed by Drs. Bo Gee, Claire Merritt, Yamil Terry and colleagues, with an educational tim from [employer]. Thrive Questionnaire Date Thrive assessed: 08/15/24 I am a: Patient What is your living situation today?: I have a steady place to live Within the past 12 months, did the food you bought not last and you didn't have the money to get more?: Never true Within the past 12 months, did you worry whether your food would run out before you got money to buy more?: Never true Do you have trouble paying for medicines?: No Do you have trouble getting transportation to medical appointments?: No Do you have trouble paying your heating and electricity bill?: No Do you have trouble taking care of your child, family member or friend?: No Do you have trouble with day-to-day activities such as bathing, preparing meals, shopping, managing finances, etc.?: No Are you currently unemployed and looking for a job?: No Are you interested in more education?: No Please select the resources that you would like help with: None Currently or been in a relationship where the following occur: No concerns reported THRIVE Score: 0 AUDIT C Alcohol Use Questionnaire (AUDIT-C) 1. How often do you have a drink containing alcohol?: Never 3. How often do you have six or more drinks on one occasion?: Never Total Score: 0 JAMIL-7 AMB Questionnaire JAMIL-7 Date JAMIL - 7 assessed: 08/15/24 Feeling nervous, anxious, or on edge: 0 = Not at all Not being able to stop or control worryin = Not at all Worrying too much about different things: 0 = Not at all Trouble relaxin = Not at all Being so restless that it is hard to sit still: 0 = Not at all Becoming easily annoyed or irritable: 0 = Not at all Feeling afraid as if something awful might happen: 0 = Not at all Total JAMIL-7 score (0-4 normal; 5-9 mild; 10-14 moderate; 15-21 severe): 0 Source: Developed by Drs. Bo Gee, Claire Merritt, Yamil Terry and colleagues, with an educational tim from [employer]. JAMIL-7 Assessment Billing JAMIL-7 Assessment Tool: JAMIL-7 Assessment 93047 Review of Systems Const All systems reviewed & are unremarkable except as noted in HPI and below Eyes Reports no additional complaints ENT Reports no additional complaints Card Reports no additional complaints Resp Reports no additional complaints GI Reports no additional complaints Reports no additional complaints Physical exam (Primary Care) Vital Signs: Last Vital Signs Temp 97.7 F 08/15/24 12:41 Pulse 81 08/15/24 12:41 Resp 18 08/15/24 12:41 BP 130/80 08/15/24 12:41 Pulse Ox 97 08/15/24 12:41 Oxygen Delivery Method Room Air 08/15/24 12:41 BMI result Body Mass Index 27.3 Tobacco/Smoking Status: Tobacco use Status Tobacco use date assessed 08/15/24 08/15/24 13:00 Patient Tobacco Use Status Never used Tobacco 08/15/24 13:00 e-Cigarette/Vaping Use Never Used 08/15/24 12:41 PHQ-9: PHQ-9 Score PHQ-9: Total score 0 08/15/24 13:16 Depression Screening Interpretation: Negative Thrive Assessment: Date of Thrive Assessment Date Thrive assessed 08/15/24 08/15/24 13:00 Currently or been in a relationship where the following occur: No concerns reported Const General: no acute distress HENMT Head: Yes normal to inspection Ears: hearing grossly normal bilaterally Face and sinus: Yes normal facial exam Throat: Yes posterior oropharynx normal Eyes General: appearance normal, both eyes and all related structures Neck Neck: Yes no lymphadenopathy and Yes supple Resp Effort & Inspection: normal respiratory effort Auscultation: clear to auscultation bilaterally Cardio Rhythm: regular rhythm Heart sounds: S1 normal heart sound present and S2 normal heart sound present GI Inspection: Yes normal to inspection Palpation (GI): Soft to palpation Percussion: Yes normal to percussion Coding Level of Care Code Est Pt Level 4 (24230) Diagnoses HTN (hypertension) I10 Hx pulmonary embolism Z86.711 Cataract H26.9 Additional Codes JAMIL-7 Assessment Billing - JAMIL-7 Assessment Tool: JAMIL-7 Assessment 41101 ([id number]) PHQ-9 - 25343 - PHQ-9 Billing: Yes ([id number]) Assessment & Plan Assessment & Plan (1) HTN (hypertension): Code(s): I10 - Essential (primary) hypertension Category: Medical Plan: Continue losartan (2) Hx pulmonary embolism: Comment: 2009 , on Eliquis Code(s): Z86.711 - Personal history of pulmonary embolism Category: Medical Plan: On Eliquis (3) Cataract: Code(s): H26.9 - Unspecified cataract Category: Medical Plan: Patient is medically cleared for cataract surgery Orders: Orders TSH reflex Free T4 5 Months I10 - Essential (primary) hypertension, N40.0 - Benign prostatic hyperplasia without lower urinary tract symptoms Complete Blood Count Auto Diff 5 Months I10 - Essential (primary) hypertension, N40.0 - Benign prostatic hyperplasia without lower urinary tract symptoms Lipid Panel 5 Months I10 - Essential (primary) hypertension, N40.0 - Benign prostatic hyperplasia without lower urinary tract symptoms PSA,Total (Free>4and<10) 5 Months I10 - Essential (primary) hypertension, N40.0 - Benign prostatic hyperplasia without lower urinary tract symptoms
[2024-08-15 12:41] VITALS: BP 130/80; PULSE 81; RESP 18; TEMP 36.5; O2SAT 97; BMI 27.3
--- OUTSIDE RECORDS SUMMARY | 2024-08-15 14:53 | XMS_ITS | Encounter Summary ---
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 [address] [facility] [place] [address] Rayray Radford MD [address] [facility] [address] [place] [address] Benign prostatic hyperplasia without lower [...] LAB CHEMISTRY METHOD 07/24/2024 1:31 PM EST [facility] Blood Venous blood specimen / Unknown 07/24/2024 9:46 AM EST 07/24/2024 12:38 PM EST Narrative [facility] - 07/24/2024 1:31 PM EST The Siemens Advia Centaur Chemiluminescent Immunoassay is used. Results obtained with different assay methods or kits cannot be used interchangeably. Results cannot be interpreted as absolute evidence of the presence or absence of malignant disease. Rayray Radford MD LAB BLOOD ORDERABLES Final Resul t [facility] [address] [place] [address], documented in this encounter Visit Diagnoses Diagnosis Benign prostatic hyperplasia without lower urinary tract symptoms documented in this encounter Care Teams Production Gear Cutter Relationship Specialty Start Date End Date Rosio Shore MD [address] [place] [address] PCP - General Internal Medicine 07/24/24 documented as of this encounter
--- OUTSIDE RECORDS SUMMARY | 2024-08-15 14:53 | XMS_ITS | Clinical Summary ---
Author Organization [facility] Address [address] [place] [address] Phone Care Team Providers Care Caramel Coloring Operator Name Role Phone Rosio Shore MD Primary Care Provider [phone] Encounters Date Type Department Care Team Description 07/24/2024 Lab Requisition [facility] - Main Lab [address] [facility] [place] [address] Rayray Radford MD Benign prostatic [...] LAB CHEMISTRY METHOD 07/24/2024 1:31 PM EST [facility] Blood Venous blood specimen / Unknown 07/24/2024 9:46 AM EST 07/24/2024 12:38 PM EST Narrative [facility] - 07/24/2024 1:31 PM EST The Siemens Advia Centaur Chemiluminescent Immunoassay is used. Results obtained with different assay methods or kits cannot be used interchangeably. Results cannot be interpreted as absolute evidence of the presence or absence of malignant disease. us Rayray Radford MD LAB BLOOD ORDERABLES Final Resul t [facility] [address] [place] [address], from Last 3 Months Insurance [place] [id number] [employer] [place] [employer]AGE Care Teams Caramel Coloring Operator Relationship Specialty Start Date End Date Rosio Shore MD [address] [place] [id number] PCP - General Internal Medicine 07/24/24
== END 2024-08-15 14:07 | disposition home or self-care (01) ==
PROVIDERS: PCP Internal Medicine; Visit Provider Internal Medicine
DX: I10 Essential (primary) hypertension (principal); Z86.711 Personal history of pulmonary embolism; H26.9 Unspecified cataract

== ENCOUNTER → 2024-08-15 11:50 | Outpatient (BNVA) | payer OTHER, SELFPAY | PROVIDERS: PCP Internal Medicine; Visit Provider Internal Medicine | DX: Z01.818 Encounter for other preprocedural examination (principal); H26.9 Unspecified cataract; I10 Essential (primary) hypertension; Z86.711 Personal history of pulmonary embolism; Z79.01 Long term (current) use of anticoagulants | CPT/HCPCS: 96127 ==

== ENCOUNTER 2024-12-26 08:08 | Outpatient (REF) | payer OTHER, SELFPAY ==
--- OUTSIDE RECORDS SUMMARY | 2024-12-26 08:10 | XMS_ITS | Encounter Summary ---
Author Organization [facility] Address [address] [place] [address] Care Team Providers Care Wire Stitcher Machine Name Role Phone Rosio Shore MD Primary Care Provider [phone] Encounter Details Date Type Department Care Team (Late st Contact Info) Description 07/24/[address] [facility] - Main Lab [address] [facility] [place] [address] Rayray Radford MD [address] [facility] [address] [place] [address] Benign prostatic hyperplasia without lower [...] LAB CHEMISTRY METHOD 07/24/2024 1:31 PM EST [facility] Blood Venous blood specimen / Unknown 07/24/2024 9:46 AM EST 07/24/2024 12:38 PM EST Narrative [facility] - 07/24/2024 1:31 PM EST The Siemens Advia Centaur Chemiluminescent Immunoassay is used. Results obtained with different assay methods or kits cannot be used interchangeably. Results cannot be interpreted as absolute evidence of the presence or absence of malignant disease. Rayray Radford MD LAB BLOOD ORDERABLES Final Resul t [facility] [address] [place] [address], documented in this encounter Visit Diagnoses Diagnosis Benign prostatic hyperplasia without lower urinary tract symptoms documented in this encounter Care Teams Wire Stitcher Machine Relationship Specialty Start Date End Date Rosio Shore MD [address] [place] [address] PCP - General Internal Medicine 07/24/24 documented as of this encounter
[2024-12-26 10:26] LABS: MANUAL DIFF FLAG NO
[2024-12-26 10:39] LABS: Hematocrit 44.3 % (42.0-52.0); Hemoglobin 15.3 g/dl (14.0-18.0); Imm Gran Abs Auto 0.02 X10*3/uL (0.00-0.03); Imm Gran Pct Auto 0.3 % (0.0-0.4); Lymphocytes Absolute Auto 2.7 X10*3/uL (1.2-4.9); Mean Corpuscular HGB Conc 34.5 g/dl (31.0-36.0); Mean Corpuscular Hemoglobin 30.5 pg (27.0-33.0); Mean Corpuscular Volume 88.4 fL (80.0-98.0); NRBC Abs Auto 0.000 X10*3/uL (0.0-0.012); NRBC Pct Auto 0.0 /100WBC (0.0-0.2); Platelet Count 360 X10*3/uL (160-400); Red Blood Count 5.01 X10*6/uL (4.60-5.80); White Blood Count 6.4 X10*3/uL (4.8-10.8)
[2024-12-26 11:14] LABS: PSA,Total (Free>4and<10) 1.07 ng/mL (0.00-4.00)
[2024-12-26 11:19] LABS: Cholesterol 235 mg/dL (<200); HDL Cholesterol 35 mg/dL (>40); Triglycerides 138 mg/dL (<150)
== END 2024-12-26 08:09 | disposition home or self-care (01) ==
LOC: HO.HMGCLDS 08:08
PROVIDERS: PCP Internal Medicine; Visit Provider Internal Medicine
DX: I10 Essential (primary) hypertension (principal); N40.0 Benign prostatic hyperplasia without lower urinary tract symptoms; Z12.5 Encounter for screening for malignant neoplasm of prostate
CPT/HCPCS: 36415; 80061; 84153; 84443; 85025

== ENCOUNTER 2025-01-03 07:51 | Outpatient (AMB) | payer OTHER, SELFPAY ==
--- OUTSIDE RECORDS SUMMARY | 2025-01-03 07:54 | XMS_ITS | Encounter Summary ---
Author Organization [facility] Address [address] [place] [address] Care Team Providers Care Laboratory Director Name Role Phone Rosio Shore MD Primary Care Provider [phone] Encounter Details Date Type Department Care Team (Late st Contact Info) Description 07/24/2024 Lab Requisition [facility] - Main Lab [address] [facility] [place] [address] Rayray Radford MD [address] [facility] [address] [place] [address] Benign prostatic hyperplasia without lower [...] LAB CHEMISTRY METHOD 07/24/2024 1:31 PM EST [facility] Blood Venous blood specimen / Unknown 07/24/2024 9:46 AM EST 07/24/2024 12:38 PM EST Narrative [facility] - 07/24/2024 1:31 PM EST The Siemens Advia Centaur Chemiluminescent Immunoassay is used. Results obtained with different assay methods or kits cannot be used interchangeably. Results cannot be interpreted as absolute evidence of the presence or absence of malignant disease. Rayray Radford MD LAB BLOOD ORDERABLES Final Resul t [facility] [address] [place] [address], documented in this encounter Visit Diagnoses Diagnosis Benign prostatic hyperplasia without lower urinary tract symptoms documented in this encounter Care Teams Laboratory Director Relationship Specialty Start Date End Date Rosio Shore MD [address] [place] [address] PCP - General Internal Medicine 07/24/24 documented as of this encounter
--- NOTE | 2025-01-03 08:11 | A.OFFPC_ITS ---
Vital Signs 01/03/25 08:13 Height 5 ft 6 in Weight 169 lb BMI 27.3 BP 136/74 Blood Pressure Location Lt brachial Position Sitting Respiration 18 Pulse 66 Pulse Source Pulse Oximeter Temp 97.8 F Temp Source Oral Pulse Oximetry (%) 95 Oxygen Delivery Method Room Air Intake Visit Reasons: Annual PE Intake Note: Pt is here today for PE. Allergies Seasonal Allergies Adverse Reaction (Verified 01/03/25 08:13) Sneezing statin Adverse Reaction (Uncoded 01/03/25 08:13) joint pain Medication List - Last Reconciled 01/03/25 by Rosio Shore MD apixaban (Eliquis) 2.5 mg PO BID dutasteride 0.5 mg PO DAILY losartan 50 mg PO DAILY Tobacco use date assessed: 01/03/25 Fall risk assessment: No Falls in past year Last assessed Fall Risk: 01/03/25 Dental Screening Dental Screen Date: 01/03/25 Did you have a dental visit in the last 12 months?: Yes Did you have a dental problem in the last 6 months where you did not have access to dental care?: No Was dental information given to patient?: Patient has dentist HPI Annual PE HPI Details Pt presents for PE. PFSH Medical History (Updated 01/03/25 @ 08:26 by Rosio Shore MD) Annual physical exam BPH (benign prostatic hyperplasia) Hx pulmonary embolism HTN (hypertension) Surgical History (Updated 01/03/25 @ 08:16 by LILLY Bautista) Hx of cataract surgery Family History Father Stomach cancer Mother No problems noted. Social History Household Members Other:: , 2 children Housing: House Patient Tobacco Use Status: Never used Tobacco e-Cigarette/Vaping Use: Never Used service: No Current occupational status: retired Cognitive needs: No Hearing needs: No Vision needs: Yes Questionnaire Thrive Questionnaire Date Thrive assessed: 08/08/24 I am a: Patient What is your living situation today?: I have a steady place to live Within the past 12 months, did the food you bought not last and you didn't have the money to get more?: Never true Within the past 12 months, did you worry whether your food would run out before you got money to buy more?: Never true Do you have trouble paying for medicines?: No Do you have trouble getting transportation to medical appointments?: No Do you have trouble paying your heating and electricity bill?: No Do you have trouble taking care of your child, family member or friend?: No Do you have trouble with day-to-day activities such as bathing, preparing meals, shopping, managing finances, etc.?: No Are you currently unemployed and looking for a job?: No Are you interested in more education?: No Please select the resources that you would like help with: None Currently or been in a relationship where the following occur: No concerns reported THRIVE Score: 0 JAMIL-7 AMB Questionnaire JAMIL-7 Date JAMIL - 7 assessed: 08/15/24 Source: Developed by Drs. Bo Gee, Claire Merritt, Yamil Terry and colleagues, with an educational tim from [employer]. Review of Systems Const All systems reviewed & are unremarkable except as noted in HPI and below Reports no additional complaints Eyes Reports no additional complaints ENT Reports no additional complaints Card Reports no additional complaints Resp Reports no additional complaints GI Reports no additional complaints Reports no additional complaints Physical exam (Primary Care) Vital Signs: Last Vital Signs Temp 97.8 F 01/03/25 08:13 Pulse 66 01/03/25 08:13 Resp 18 01/03/25 08:13 BP 136/74 01/03/25 08:13 Pulse Ox 95 01/03/25 08:13 Oxygen Delivery Method Room Air 01/03/25 08:13 BMI result Body Mass Index 27.3 Tobacco/Smoking Status: Tobacco use Status Tobacco use date assessed 01/03/25 01/03/25 08:17 Patient Tobacco Use Status Never used Tobacco 01/03/25 08:17 e-Cigarette/Vaping Use Never Used 01/03/25 08:17 Thrive Assessment: Date of Thrive Assessment Date Thrive assessed 08/08/24 01/03/25 08:17 Currently or been in a relationship where the following occur: No concerns reported Const General: no acute distress HENMT Head: Yes normal to inspection Ears: hearing grossly normal bilaterally Face and sinus: Yes normal facial exam Mouth: Normal oral and palatal mucosa present Throat: Yes posterior oropharynx normal Eyes General: appearance normal, both eyes and all related structures Neck Neck: Yes no lymphadenopathy and Yes supple Resp Effort & Inspection: normal respiratory effort Auscultation: clear to auscultation bilaterally Cardio Rhythm: regular rhythm Heart sounds: S1 normal heart sound present and S2 normal heart sound present GI Inspection: Yes normal to inspection Palpation (GI): Soft to palpation Percussion: Yes normal to percussion Auscultation: normal bowel sounds Immunizations pneumoc 20-dada conj-dip cr(PF) 0.5 mL IM syringe Performing Provider: Rosio Shore MD Performing Location: [facility] [place] [facility] Administered by: LILLY Bautista on 01/03/25 08:41 Dose Route Admin Location Dispensed Lot Number Expiration Date [facility] Child Development Instructor 0.5 mL IM Left Deltoid 0.5 mL [id number] 12/17/25 5365-6050-65 [employer] Total Dispensed Waste 0.5 mL 0 % VIS Given Date VIS Provided VIS Publication Date 01/03/25 Single Vaccine 24 Eligibility Eligibility Date Funding Source Not [facility] Eligible 01/03/25 Private Coding Level of Care Code Est Pt Prev Care >65y(51724) Diagnoses HTN (hypertension) I10 Hx pulmonary embolism Z86.711 BPH (benign prostatic hyperplasia) N40.0 Annual physical exam Z00.00 Assessment & Plan Assessment & Plan (1) HTN (hypertension): Code(s): I10 - Essential (primary) hypertension Category: Medical Plan: cont Losartan (2) Hx pulmonary embolism: Comment: 2009 , on Eliquis Code(s): Z86.711 - Personal history of pulmonary embolism Category: Medical Plan: Continue Eliquis (3) BPH (benign prostatic hyperplasia): Comment: f/u with [facility] Code(s): N40.0 - Benign prostatic hyperplasia without lower urinary tract symptoms Category: Medical Plan: Continue dutasteride, follow-up with urology (4) Annual physical exam: Code(s): Z00.00 - Encounter for general adult medical examination without abnormal findings Category: Medical Plan: Well-balanced diet regular physical activity discussed with the patient. Check basic metabolic panel today follow-up in 1 year with a fasting labs before Orders: Orders Basic Metabolic Panel Today I10 - Essential (primary) hypertension Pneumococcal 20 Immunization Today Z23 - Encounter for immunization Comprehensive [place]. Panel Fast 1 Year I10 - Essential (primary) hypertension, Z00.00 - Encounter for general adult medical examination without abnormal findings Complete Blood Count Auto Diff 1 Year I10 - Essential (primary) hypertension, Z00.00 - Encounter for general adult medical examination without abnormal findings UA w Microscopic 1 Year I10 - Essential (primary) hypertension, Z00.00 - Encounter for general adult medical examination without abnormal findings
[2025-01-03 08:13] VITALS: BP 136/74; PULSE 66; RESP 18; TEMP 36.6; O2SAT 95; BMI 27.3
== END 2025-01-03 08:40 | disposition home or self-care (01) ==
LOC: HO.HMCC 07:52
PROVIDERS: PCP Internal Medicine; Visit Provider Internal Medicine
DX: I10 Essential (primary) hypertension (principal); Z86.711 Personal history of pulmonary embolism; N40.0 Benign prostatic hyperplasia without lower urinary tract symptoms; Z00.00 Encounter for general adult medical examination without abnormal findings; Z23 Encounter for immunization

== ENCOUNTER 2025-01-03 07:51 | Outpatient (REF) | payer OTHER, SELFPAY ==
[2025-01-03 10:58] LABS: Anion Gap 13 (12-20); Blood Urea Nitrogen 21 mg/dL (9-16); Calcium 9.0 mg/dL (8.4-10.2); Carbon Dioxide 23 mmol/L (22-29); Chloride 109 mmol/L (96-108); Estimated Glomerular Filt Rate > 60; Potassium 4.2 mmol/L (3.3-5.1); Sodium 141 mmol/L (135-145)
== END 2025-01-03 07:52 | disposition home or self-care (01) ==
LOC: HO.HMGCLDS 07:51
PROVIDERS: PCP Internal Medicine; Visit Provider Internal Medicine
DX: Z00.00 Encounter for general adult medical examination without abnormal findings (principal); Z23 Encounter for immunization; I10 Essential (primary) hypertension; N40.0 Benign prostatic hyperplasia without lower urinary tract symptoms; Z86.711 Personal history of pulmonary embolism; Z79.01 Long term (current) use of anticoagulants; Z79.899 Other long term (current) drug therapy
CPT/HCPCS: 36415; 80048; 90471; 90677